=== PATIENT | male | born 1955 | race Caucasian/White ===

== ENCOUNTER 2017-01-16 09:02 | Emergency (ER) | payer OTHER ==
[~2017-01-16] VITALS: Ht 180.3 cm; Wt 102.3 kg
[~2017-01-16 09:02] MED LIST: MOTRIN800 MG PO; PERCOCET 5/31 TABLET PO
[2017-01-16] MEDS ORDERED: TRAMADOL HCL50 MG PO (10:05)
[2017-01-16 12:16] VITALS: BP 155/64
== END 2017-01-16 12:17 | disposition home or self-care (01) ==
LOC: EME 09:02
DX: Y99.0 Civilian activity done for income or pay (principal); S60.221A Contusion of right hand, initial encounter; W23.0XXA Caught, crushed, jammed, or pinched between moving objects, initial encounter
CPT/HCPCS: 73130; 99281; 99284